=== PATIENT | male | born 1960 | race Caucasian/White ===

== ENCOUNTER 2019-08-06 16:32 | Emergency (ER) | payer OTHER, SELFPAY ==
[2019-08-06 16:45] VITALS: BP 161/93; PULSE 59; RESP 20; TEMP 36.4; O2SAT 100; BMI 27.8
--- NOTE | 2019-08-06 16:58 | ED.ABDPAIN ---
HPI - Abdominal Pain <JACQUIE Jane - Last Filed: 08/07/19 00:16> General Chief Complaint: Abdominal Pain Stated Complaint: thinks impacted bowls, lots of pain Time Seen by Provider: 08/06/19 16:46 Source: patient Mode of arrival: Ambulatory Limitations: no limitations History of Present Illness HPI narrative: This is a 59-year-old gentleman, nonsmoker, who presents with spouse with chief complain of feeling of constipation and lower abdominal discomfort for last 2 days. Patient states his bowel movement has been very normal and has 1-2 times of bowel movements daily after he incorporated magnesium powder supplements. He does intermittent fasting and it is healthy with vegetables and lean meat including nuts. Patient denies in recent diet change, fever/chills, nausea/vomiting, activity changes, or prolonged bed rest. Patient had used a glycerin suppositories and milk of magnesium today without relief. Patient also states he had not voided since this morning. Patient denies history of BPH. Patient decreased appetite and has not been eating since last night because he is worried about constipation and intermittent fasting during the daytime. Patient denies urinary symptoms such as frequency, urgency, dysuria. Related Data Previous Rx's Medication Instructions Recorded allopurinol 300 mg PO QDAY #90 tab 09/14/16 amlodipine 10 mg PO QDAY #90 tab 09/14/16 atenolol 100 mg PO QDAY #90 tab 09/14/16 Allergies Allergy/AdvReac Type Severity Reaction Status Date / Time No Known Drug Allergies Allergy Verified 08/06/19 16:45 Review of Systems <JACQUIE Jane - Last Filed: 08/07/19 00:16> Review of Systems Narrative: General: Denies fever, chills, fatigue, malaise, sweats. HEENT: Denies sinus pain, ear pain, sore throat, difficulty swallowing, dizziness. Respiratory: Denies dyspnea, cough, wheezing, hemoptysis, sputum. Cardiovascular: Denies chest pain, palpitations, orthopnea, edema. Gastrointestinal: See HPI : See HPI Musculoskeletal: Denies weakness, joint pain or bony pain. Skin: Denies rash, skin lesions, or other. Neurologic: Denies weakness, headache, numbness, change in speech, confusion, seizures, incoordination. Psychiatric: No concerning psychosocial issues. 12-point review of systems is negative except for those stated above. Patient History <JACQUIE Jane - Last Filed: 08/07/19 00:16> Social History Smoking Status: Never smoker alcohol intake frequency: 0-2 drinks per day Substance Use Type: does not use Exam <JACQUIE Jane - Last Filed: 08/07/19 00:16> Narrative Exam Narrative: GEN: Alert, oriented x 3, well appearing and nourished, and in no acute distress. Head: Normal cephalic, atraumatic. No scalp or temporal tenderness, palpable mass or rash. EYES: Pupils are equal, round, and reactive to light and accommodation. Extraocular muscles are intact bilaterally. There is no subconjunctival hemorrhage, exudate and sclera non-icteric. ENT: Bilateral auditory canals and tympanic membranes clear. Hearing grossly intact. Nose without bleeding, purulent discharge or deviation. Facial sinuses nontender to palpate. Mucous membrane moist, no mucosal lesion. Throat without erythema, tonsillar hypertrophy or exudate. Uvula in midline, airway patent. Neck: Trachea in midline. No JVD, non-tender without lymphadenopathy. No masses or thyroid megaly. Supple, non-tender and no meningeal signs. CARDIAC: Irregular rhythm without murmurs, gallops, or rubs. No chest wall tenderness. No peripheral edema, cyanosis or pallor. Capillary refill is less than 2 seconds. RESPIRATORY: Lungs are clear to auscultate bilaterally. No cough, wheezes, rales, or rhonchi. No stridor, respiratory distress, increase work of breathing, or accessary muscle used. ABD: Abdomen soft and non-distended. Mild discomfort to left quadrant. Has indwelling Hagen catheter obtained 1500 mL of urine. No guarding or rebound tenderness to palpate. Bowel sounds are normal in all 4 quadrants. There is no palpable masses or organomegaly. EXT: Full painless ROM of all extremities with no loss of sensation, strength, effusion or edema. SKIN: Warm, dry, normal color for patient. No erythema, lesions or rash over visible areas. BACK: Nontender without deformity or crepitance. No flank tenderness. NEUROLOGICAL: Alert and oriented to place, time and person. Sensation and motor function intact bilaterally. No facial droops, dysphasia. PSYCHIATRIC: Good judgement and reason, without hallucinations, abnormal affect or abnormal behaviors during the examination. Initial Vital Signs Initial Vital Signs: Vital Signs Temperature 97.6 F 08/06/19 16:45 Pulse Rate 59 L 08/06/19 16:45 Respiratory Rate 20 08/06/19 16:45 Blood Pressure 161/93 H 08/06/19 16:45 Pulse Oximetry 100 08/06/19 16:45 <Jose Alberto Lawrence DO - Last Filed: 08/07/19 00:53> Initial Vital Signs Initial Vital Signs: Vital Signs Temperature 97.6 F 08/06/19 16:45 Pulse Rate 59 L 08/06/19 16:45 Respiratory Rate 20 08/06/19 16:45 Blood Pressure 161/93 H 08/06/19 16:45 Pulse Oximetry 100 08/06/19 16:45 Scores <JACQUIE Jane - Last Filed: 08/07/19 00:16> CHADS-VASc Congestive heart failure: no Hypertension: yes Age 75 years or older: no Diabetes mellitus: no Stroke, TIA, or TE: no Vascular disease: no Age 65 to 74 years: no Sex category (female): Male CHADS-VASc Score: 1 Citation:: Also, [id number] score for Afib stroke risk-1 point (HTN) as a low risk. The patient takes 325 mg ASA daily for last 2 years. GCS Britni coma scale eye opening: Spontaneous Britni coma scale verbal response: Orientated [place] coma scale motor response: Obey commands Britni coma scale total score: 15 Course <JACQUIE Jane - Last Filed: 08/07/19 00:16> Orders Ordered: ED Orders 08/06/19 17:11 Complete Blood Count AUTO DIFF Stat Comprehensive Metabolic Panel Stat 08/06/19 17:44 Urine Microscopic Stat 08/06/19 17:45 XR acute abdomen series Stat 08/06/19 18:52 EKG-12 Lead Stat Discontinued Medications Magnesium Citrate (Magnesium Citrate) 300 ml PO NOW ONE Stop: 08/06/19 22:03 Last Admin: 08/06/19 22:15 Dose: 300 ml Documented by: JOSHUA Mineral Oil (Mineral Oil Enema) 1 each NV NOW ONE Stop: 08/06/19 20:38 Last Admin: 08/06/19 21:05 Dose: 1 each Documented by: JOSHUA Vital Signs Vital signs: Vital Signs - 8 hr 08/06/19 18:00 08/06/19 22:45 Temperature 98.7 F Pulse Rate 99 H 83 Respiratory Rate 16 16 Blood Pressure 131/83 Blood Pressure [Right Arm] 130/75 Pulse Oximetry 96 98 <Jose Alberto Lawrence DO - Last Filed: 08/07/19 00:53> Orders Ordered: ED Orders 08/06/19 17:11 Complete Blood Count AUTO DIFF Stat Comprehensive Metabolic Panel Stat 08/06/19 17:44 Urine Microscopic Stat 08/06/19 17:45 XR acute abdomen series Stat 08/06/19 18:52 EKG-12 Lead Stat Discontinued Medications Magnesium Citrate (Magnesium Citrate) 300 ml PO NOW ONE Stop: 08/06/19 22:03 Last Admin: 08/06/19 22:15 Dose: 300 ml Documented by: JOSHUA Mineral Oil (Mineral Oil Enema) 1 each NV NOW ONE Stop: 08/06/19 20:38 Last Admin: 08/06/19 21:05 Dose: 1 each Documented by: JOSHUA Vital Signs Vital signs: Vital Signs - 8 hr 08/06/19 18:00 08/06/19 22:45 Temperature 98.7 F Pulse Rate 99 H 83 Respiratory Rate 16 16 Blood Pressure 131/83 Blood Pressure [Right Arm] 130/75 Pulse Oximetry 96 98 MDM - Abdominal Pain <JACQUIE Jane - Last Filed: 08/07/19 00:16> Differential Diagnosis Differential diagnosis: Likely abdominal pain, constipation and other (Urinary retention) Medical Records Attestation: I reviewed the patient's medical records. Lab Data Attestation: I reviewed the patient's lab results. Result diagrams: 08/06/19 17:11 08/06/19 17:11 Labs: Lab Results 08/06/19 08/06/19 08/06/19 Range/Units 17:11 17:11 17:44 WBC 8.5 (4.5-11.0) X10^3/uL RBC 4.35 L (4.5-5.9) X10^6/uL Hgb 15.5 (13.5-17.5) g/dL Hct 44.3 (41-53) % MCV 101.9 H (80-100) fL MCH 35.7 H (26-34) PG MCHC 35.1 (30-36) % RDW 13.2 (11.6-14.8) % Plt Count 236 (150-400) X10^3/uL Neut % (Auto) 90.7 H (50-75) % Lymph % (Auto) 4.7 L (25-40) % Webb % (Auto) 4.3 (3-14) % Eos % (Auto) 0.1 L (2-4) % Baso % (Auto) 0.2 (0-2) % Neut # (Auto) 7700 H (2360-6179) /uL Lymph # (Auto) 400 L (9732-5013) /uL Webb # (Auto) 400 (0-900) /uL Eos # (Auto) 0 (0-450) /uL Baso # (Auto) 0 (0-100) /uL Sodium 133 L (137-145) mmol/L Potassium 4.3 (3.4-5.1) mmol/L Chloride 96 L (98-107) mmol/L Carbon Dioxide 26 (22-32) mmol/L BUN 12 (9-20) mg/dL Creatinine 0.60 L (0.66-1.25) mg/dL Estimated GFR > 60.0 (>60) mL/min BUN/Creatinine Ratio 20.0 (6-22) Glucose 172 H (80-110) mg/dL Calcium 9.4 (8.4-10.2) mg/dL Total Bilirubin 1.0 (0.2-1.3) mg/dL AST 47 (17-59) IU/L ALT 45 (21-72) IU/L Alkaline Phosphatase 113 (38-126) U/L Total Protein 7.8 (6.3-8.2) g/dL Albumin 4.6 (3.5-5.0) g/dL Globulin 3.2 (1.7-4.1) g/dL Albumin/Globulin Ratio 1.4 (1.0-2.8) Urine RBC None seen (0-5/HPF) Urine WBC 0-1/hpf (0-5/HPF) Ur Squamous Epith Cells 0-1 /hpf (0-5/HPF) Amorphous Sediment 1+ Urine Bacteria None seen (None) Ur Culture Indicated? Cult not indicated Point of care testing: Urine Dip Bedside Urine Glucose Negative Bedside Urine Bilirubin - Negative Bedside Urine Ketone + 15 Urine Specific [place] 1.010 Bedside Urine Occult Blood - Negative Bedside Urine pH 7.0 Bedside Urine Protein +/- 15 Bedside Urine Urobilinogen - Negative Bedside Urine Nitrite - Negative Bedside Urine Leukocytes - Negative Esterase Imaging Data Abdominal x-ray: Attestation: I personally reviewed and interpreted this imaging study as follows: Radiologist's impression: [address] [address] XRay Report Signed Patient: Randy Almonte RMR#: [id number] : 9Acct:[id number] Age/Sex: 59 / MDate of Service: 08/06/19 Loc: ED Accession Number: [id number] Procedure: XR acute abdomen series Ordering Provider: Gennaro Manjarrez PROCEDURE: XR ACUTE ABDOMEN SERIES INDICATIONS: abdominal pain and feels like constipation TECHNIQUE: One view chest and two views of the abdomen were acquired. COMPARISON: None. FINDINGS: Surgical changes and devices: None. Chest: Lungs are clear. Heart size is normal. No pleural effusions. No pneumoperitoneum. Abdomen: Mild gaseous distention of both small and large bowel loops. There is a paucity of gas and mildly increased amount of solid stool of the rectum. No suspicious calcifications. Visualized solid organ contours appear normal. Bones: No suspicious bony lesions. Bilateral hip arthroplasties. IMPRESSION: Gaseous distention of bowel loops may indicate a distal obstruction, potentially secondary to rectal stool. No free air. Dictated by: Jennifer Wong M.D. on 08/06/2019 at 18:10 Approved by: Jennifer Wong M.D. on 08/06/2019 at 18:13 ECG Data Attestation: I personally reviewed and interpreted this ECG as follows: Prior ECG tracings: not available for review Interpretation: Afib rate at 70. RBBB Normal axis. NO AT elevation or depression MDM Narrative Medical decision making narrative: This is a 5-year-old gentleman presents to ED from [facility] with constipation for 2 days with low abdominal discomfort and urinary retention since this morning after he voided. Patient denies constitutional symptoms. Patient denies any changes on his diet or activity levels. Patient usually has bowel movement 1-2 times daily without difficulty. Patient denies nausea or vomiting. Patient attempted to use [id number] milk of magnesium and glycerin suppository without much effect. AAS indicates mild gaseous distention of small and large bowel loops and a distal obstruction with increased amount of solid stool in the rectum. Lab tests shows very mildly decreased sodium and chloride of 133/96 with unremarkable CBC. Mineral or enema was administered and patient had good bowel movement in ED prior discharged to home and patient reports improved abdominal discomfort. Patient also was given half a bottle of oral magnesium citrate and discharged to home with the rest. Hagen catheter was inserted to decompress his bladder and obtained about 1800 mL of urine. The patient has acute urinary distention is likely due to constipation and pressure from his colon. Urine test was unremarkable for infection. Hagen bag has changed to a leg bag. Patient advised to follow up with his primary care physician for removal but patient declined due to difficulty getting on appointment with his primary care physician and states will be back tomorrow a.m. to ED or walk-in clinic for a Hagen removal after good bowel movements. Irregular heart rhythm was auscultated and EKG shows new onset of AFib without symptoms. Patient has been taking full-dose of aspirin for last 2-3 years. [id number] score for Afib stroke risk-1 point (HTN) as a low risk. Patient advised to continue with a full dose of aspirin daily and to follow up with his primary care physician as an outpatient. Patient was informed possibly needed echocardiogram in the near future. Patient verbalized understanding. Return precautions were discussed with the patient and agrees with the treatment plan. Patient and his spouse will be staying at the local [facility] before heading out to home to [facility] tomorrow. <Jose Alberto Lawrence, DO - Last Filed: 08/07/19 00:53> Lab Data Labs: Lab Results 08/06/19 08/06/19 08/06/19 Range/Units 17:11 17:11 17:44 WBC 8.5 (4.5-11.0) X10^3/uL RBC 4.35 L (4.5-5.9) X10^6/uL Hgb 15.5 (13.5-17.5) g/dL Hct 44.3 (41-53) % MCV 101.9 H (80-100) fL MCH 35.7 H (26-34) PG MCHC 35.1 (30-36) % RDW 13.2 (11.6-14.8) % Plt Count 236 (150-400) X10^3/uL Neut % (Auto) 90.7 H (50-75) % Lymph % (Auto) 4.7 L (25-40) % Webb % (Auto) 4.3 (3-14) % Eos % (Auto) 0.1 L (2-4) % Baso % (Auto) 0.2 (0-2) % Neut # (Auto) 7700 H (4934-7413) /uL Lymph # (Auto) 400 L (0101-7315) /uL Webb # (Auto) 400 (0-900) /uL Eos # (Auto) 0 (0-450) /uL Baso # (Auto) 0 (0-100) /uL Sodium 133 L (137-145) mmol/L Potassium 4.3 (3.4-5.1) mmol/L Chloride 96 L (98-107) mmol/L Carbon Dioxide 26 (22-32) mmol/L BUN 12 (9-20) mg/dL Creatinine 0.60 L (0.66-1.25) mg/dL Estimated GFR > 60.0 (>60) mL/min BUN/Creatinine Ratio 20.0 (6-22) Glucose 172 H (80-110) mg/dL Calcium 9.4 (8.4-10.2) mg/dL Total Bilirubin 1.0 (0.2-1.3) mg/dL AST 47 (17-59) IU/L ALT 45 (21-72) IU/L Alkaline Phosphatase 113 (38-126) U/L Total Protein 7.8 (6.3-8.2) g/dL Albumin 4.6 (3.5-5.0) g/dL Globulin 3.2 (1.7-4.1) g/dL Albumin/Globulin Ratio 1.4 (1.0-2.8) Urine RBC None seen (0-5/HPF) Urine WBC 0-1/hpf (0-5/HPF) Ur Squamous Epith Cells 0-1 /hpf (0-5/HPF) Amorphous Sediment 1+ Urine Bacteria None seen (None) Ur Culture Indicated? Cult not indicated Point of care testing: Urine Dip Bedside Urine Glucose Negative Bedside Urine Bilirubin - Negative Bedside Urine Ketone + 15 Urine Specific [place] 1.010 Bedside Urine Occult Blood - Negative Bedside Urine pH 7.0 Bedside Urine Protein +/- 15 Bedside Urine Urobilinogen - Negative Bedside Urine Nitrite - Negative Bedside Urine Leukocytes - Negative Esterase Discharge Plan Departure Patient Disposition: Home Clinical Impression: Acute urinary retention, New onset a-fib Constipation Qualifiers: Constipation type: unspecified constipation type Qualified Code(s): K59.00 - Constipation, unspecified Discharge Date/Time: 08/06/19 22:45 Instructions: DI for Constipation, DI for Urinary Retention in Men Activity Restrictions/Additional Instructions: You have been diagnosed with [constipation and acute urinary retention. Fully had in placed and drained near 1800 mL of urine today. Mineral oil enema has been administered and you had good bowel movement. New onset of AFib.]. What to do: *Take your medications as directed. Please take rest of the magnesium citrate when you arrive to hotel in anticipation of going to by tomorrow morning. Will consider removing Hagen catheter tomorrow morning after the good bowel movements. Fully back has been changed out to leg bag for convenience. You can get this done at ER or walk-in clinic since you declined to follow up with her primary care physician due to difficulty with the appointments. Please continue with the daily full dose of aspirin intake. *Follow up with your primary care provider in 2-3 days, call for an appointment. Let them know you were seen in the ED and that we asked you to be seen in follow up. You may need echocardiogram and further test for new onset of AFib. *Return to ED if you have any new, worsening, or concerning symptoms, such as [nausea/vomiting, fever, abdominal pain, unable to pass stool, chest pain, breathing difficulty, or any acute concerns]. Prescriptions: No Action atenolol 100 MG tablet 100 mg PO QDAY Qty: 90 RF: 3 amlodipine 10 MG tablet 10 mg PO QDAY Qty: 90 RF: 3 allopurinol 300 MG tablet 300 mg PO QDAY Qty: 90 RF: 3 Referrals: Андрей Brian MD [Non-Staff] -
--- NOTE | 2019-08-06 17:45 | DI.RAD.S_ITS ---
PROCEDURE: XR ACUTE ABDOMEN SERIES INDICATIONS: abdominal pain and feels like constipation TECHNIQUE: One view chest and two views of the abdomen were acquired. COMPARISON: None. FINDINGS: Surgical changes and devices: None. Chest: Lungs are clear. Heart size is normal. No pleural effusions. No pneumoperitoneum. Abdomen: Mild gaseous distention of both small and large bowel loops. There is a paucity of gas and mildly increased amount of solid stool of the rectum. No suspicious calcifications. Visualized solid organ contours appear normal. Bones: No suspicious bony lesions. Bilateral hip arthroplasties. IMPRESSION: Gaseous distention of bowel loops may indicate a distal obstruction, potentially secondary to rectal stool. No free air. Dictated by: Jennifer Wong M.D. on 08/06/2019 at 18:10 Approved by: Jennifer Wong M.D. on 08/06/2019 at 18:13
[2019-08-06 17:46] LABS: Bacteria Urine None Seen; RBC Urine None Seen (0-5/HPF)
[2019-08-06 17:56] LABS: Add Manual Diff / Slide Review NO; Basophils Absolute Auto 0 /uL (0-100); Basophils Percent Auto 0.2 % (0-2); Eosinophils Absolute Auto 0 /uL (0-450); Eosinophils Percent Auto 0.1 % (2-4); Hematocrit 44.3 % (41-53); Hemoglobin 15.5 g/dL (13.5-17.5); Lymphocytes Absolute Auto 400 /uL (1100-4500); Lymphocytes Percent Auto 4.7 % (25-40); Mean Corpuscular HGB Conc 35.1 % (30-36); Mean Corpuscular Hemoglobin 35.7 PG (26-34); Mean Corpuscular Volume 101.9 fL (80-100); Monocytes Absolute Auto 400 /uL (0-900); Monocytes Percent Auto 4.3 % (3-14); Neutrophils Absolute Auto 7700 /uL (1500-7000); Neutrophils Percent Auto 90.7 % (50-75); Platelet Count 236 X10^3/uL (150-400); Red Blood Cell Count 4.35 X10^6/uL (4.5-5.9); Red Cell Distribution Width 13.2 % (11.6-14.8); White Blood Cell Count 8.5 X10^3/uL (4.5-11.0)
[2019-08-06 17:56] LABS: Amorphous Sediment Urine 1+; Culture Indicated Urine Cult Not Indicated; Squamous Epithelial Cell Urine 0-1 /HPF (0-5/HPF); WBC Urine 0-1/HPF (0-5/HPF)
[2019-08-06 18:00] VITALS: BP 130/75; PULSE 99; RESP 16; O2SAT 96
[2019-08-06 18:02] LABS: Alanine Aminotransferase 45 IU/L (21-72); Albumin 4.6 g/dL (3.5-5.0); Albumin Globulin Ratio 1.4 (1.0-2.8); Alkaline Phosphatase 113 U/L (38-126); Aspartate Aminotransferase 47 IU/L (17-59); Blood Urea Nitrogen 12 mg/dL (9-20); Calcium 9.4 mg/dL (8.4-10.2); Carbon Dioxide 26 mmol/L (22-32); Chloride 96 mmol/L (98-107); Estimated Glomerular Filt Rate > 60.0 mL/min (>60); Globulin 3.2 g/dL (1.7-4.1); Glucose 172 mg/dL (80-110); HEMOLYSIS < 15 (0-50); Potassium 4.3 mmol/L (3.4-5.1); Sodium 133 mmol/L (137-145); Total Protein 7.8 g/dL (6.3-8.2)
[2019-08-06] MEDS: MINERAL OIL 1 EACH ENEMA PR (21:05)
[2019-08-06] MEDS: MAGNESIUM CITRATE 300 ML SOLUTION PO (22:15)
[2019-08-06 22:45] VITALS: BP 131/83; PULSE 83; RESP 16; TEMP 37.1; O2SAT 98
== END 2019-08-06 22:45 | disposition home or self-care (01) ==
PROVIDERS: Emergency Provider Nurse Practitioner Family
DX: R33.9 Retention of urine, unspecified (principal); I48.91 Unspecified atrial fibrillation; I10 Essential (primary) hypertension; K59.00 Constipation, unspecified; Z79.82 Long term (current) use of aspirin
CPT/HCPCS: 36415; 51701; 74022; 80053; 81003; 81015; 85025; 93005; 93010; 99284; 99285

== ENCOUNTER 2019-08-07 08:14 | Emergency (ER) | payer OTHER, SELFPAY ==
[2019-08-07 08:24] VITALS: BP 141/86; PULSE 68; RESP 16; O2SAT 97; BMI 27.8
--- NOTE | 2019-08-07 08:29 | ED.MALEGU ---
HPI - Male Genitourinary General Chief complaint: Urogenital-Male Stated complaint: remove of catheter Time Seen by Provider: 08/07/19 08:15 Source: patient Mode of arrival: Ambulatory Limitations: no limitations History of Present Illness HPI Narrative: 59-year-old male was seen in the emergency department yesterday for constipation and urinary retention. He had a Hagen catheter placed. Cording to the note from yesterday 1800 cc of urine returned however the patient states that it was almost 3 L of urine ?went was all sent in done ?patient was discharged home with a Hagen catheter in place. He returns to the emergency department today to have this catheter removed. Related Data Previous Rx's Medication Instructions Recorded allopurinol 300 mg PO QDAY #90 tab 09/14/16 amlodipine 10 mg PO QDAY #90 tab 09/14/16 atenolol 100 mg PO QDAY #90 tab 09/14/16 Allergies Allergy/AdvReac Type Severity Reaction Status Date / Time No Known Drug Allergies Allergy Verified 08/07/19 08:23 Review of Systems Constitutional Constitutional: Denies fever(s) Cardiovascular Cardiovascular: Denies chest pain and Denies dyspnea Respiratory Respiratory: Denies dyspnea Gastrointestinal Gastrointestinal: Denies abdominal pain Genitourinary Comments: Hagen catheter in place Integumentary/Breasts Skin/Breast: Denies rash Neurologic Neurologic: Denies behavioral changes Psychiatric Psychiatric: Denies behavioral changes Hematologic/Lymphatic Hematologic/Lymphatic: Denies easy bleeding and Denies easy bruising Patient History Medical History Acute urinary retention (Inactive) Elevated lipids (09/24/15) Essential hypertension (09/24/15) Social History Smoking Status: Never smoker alcohol intake frequency: 0-2 drinks per day Substance Use Type: does not use Exam Initial Vital Signs Initial Vital Signs: Vital Signs Pulse Rate 68 08/07/19 08:24 Respiratory Rate 16 08/07/19 08:24 Blood Pressure 141/86 H 08/07/19 08:24 Pulse Oximetry 97 08/07/19 08:24 Const General: cooperative, comfortable, well developed and well groomed Orientation: alert, awake and oriented x3 HENMT Head: normal to inspection and normocephalic Resp Effort & Inspection: normal respiratory effort Auscultation: clear to auscultation bilaterally Other: Hagen catheter in place Skin Rashes: no rashes Neuro General: alert and awake Cognition: normal cognition Speech: speech normal Extrem General: normal to inspection Psych Appearance: grossly normal and well kempt Course Vital Signs Vital signs: Vital Signs - 8 hr 08/07/19 08:24 Pulse Rate 68 Respiratory Rate 16 Blood Pressure 141/86 H Pulse Oximetry 97 MDM - Male Genitourinary MDM Narrative Medical decision making narrative: Patient did have urinary retention yesterday. He does have the Hagen catheter in place today. He return to the emergency department today to have this catheter removed. We did discuss his options to include leaving the catheter in place. I did inform him that leaving it in place and having him follow up with his primary doctor or a urologist would most likely give him the highest likelihood of being successful at not having urinary retention when the catheter is removed. I did inform him that we could remove the catheter today. Informed him that doing this there is the potential that he could start to urinate without problems or there is also the potentially he could start to retain urine again. Informed him that if this happened the catheter would have to be replaced. Patient expressed understanding of this. He states that he would still like to have the catheter removed. His is at bedside for these discussions. Catheter was removed. He was informed to follow up with his primary doctor. He expressed understanding and agreement. Discharge Plan Departure Patient Disposition: Home Clinical Impression: Encounter for Hagen catheter removal, H/O urinary retention Instructions: DI for Urinary Retention in Men Activity Restrictions/Additional Instructions: After our discussion today you did decide to have the Hagen catheter removed. There is a possibility that you will start to retain urine again. If this happens please seek medical attention once again to potentially have the catheter replaced. I do recommend that you follow up with your primary doctor regardless of this. Continue all of your medications as directed Prescriptions: No Action atenolol 100 MG tablet 100 mg PO QDAY Qty: 90 RF: 3 amlodipine 10 MG tablet 10 mg PO QDAY Qty: 90 RF: 3 allopurinol 300 MG tablet 300 mg PO QDAY Qty: 90 RF: 3
--- NOTE | 2019-08-07 08:30 | PC.NURSE ---
pt here to have indwelling urine catheter removed. pt had it placed last ewa for constipation. instructed to get it removed after bm. withdrew 10ml out of catheter tube balloon, then removed catheter from urethra.
== END 2019-08-07 08:54 | disposition home or self-care (01) ==
PROVIDERS: Emergency Provider Emergency Medicine
DX: Z46.6 Encounter for fitting and adjustment of urinary device (principal); Z87.898 Personal history of other specified conditions
CPT/HCPCS: 99282

== ENCOUNTER 2019-11-21 11:41 | Day surgery (SDC) | payer OTHER, SELFPAY ==
[2019-11-21] MEDS: SODIUM CHLORIDE 0.9% 1,000 ML 200 ML IV (12:00)
[2019-11-21 12:14] VITALS: BP 125/82; PULSE 67; RESP 20; TEMP 36.3; O2SAT 98
[2019-11-21 12:18] VITALS: BMI 27.7
--- NOTE | 2019-11-21 12:54 | PM.HP.1 ---
History of Present Illness History of Present Illness Date Patient Seen: 11/21/19 Time Patient Seen: 12:54 Chief complaint: [id number] Narrative: This is a 59-year-old man with history of severe constipation causing obstructive symptoms and urinary retention a few months ago. He has never had a colonoscopy. He denies any melena, hematochezia, unexplained weight loss, or unexplained abdominal pain. He has a recent new diagnosis of atrial fibrillation, and is being followed by Dr. Vasques. ROS: Positive for arthritis pain, constipation. Thirteen system review is otherwise negative other than as mentioned below and in HPI. PE GENERAL: Well groomed and cooperative. Appears stated age. Answers questions promptly and appropriately. Vital signs noted. HENT: Normocephalic, atraumatic. Hearing intact. Oral mucosa is pink and moist. EYES: Conjunctiva pink, sclera white, no periorbital swelling. CARDIOVASCULAR: Regular rate. No pedal edema. RESPIRATORY: Non-tachypneic, breathing comfortably on room air. GASTROINTESTINAL: Abdomen soft and non-distended GENITALURINARY: No flank tenderness. MUSCULOSKELETAL: Equal tone and mass bilaterally. SKIN: Warm, dry, soft, appropriate color for ethnicity. No other lesions, rashes, or wounds. NEURO: Alert and Oriented X 3. No gross sensory deficits, or cognitive issues. PSYCH: Appropriate affect and mood. Patient History Medical History Acute urinary retention (Inactive) Elevated lipids (09/24/15) Essential hypertension (09/24/15) Family & Social History Social History: household members spouse Tobacco & Substance use: Smoking Status Never smoker alcohol intake frequency 0-2 drinks per day Substance Use Type does not use Meds Home Medications and Allergies Home Medications Medication Instructions Recorded Confirmed Type allopurinol 300 mg PO QDAY #90 tab 09/14/16 11/21/19 Rx amlodipine 10 mg PO QDAY #90 tab 09/14/16 11/21/19 Rx atenolol 100 mg PO QDAY #90 tab 09/14/16 11/21/19 Rx aspirin 325 mg PO DAILY 11/21/19 11/21/19 History Allergies Allergy/AdvReac Type Severity Reaction Status Date / Time No Known Drug Allergies Allergy Verified 11/21/19 12:00 Exam Vital Signs (past 8 hours): - 11/21/19 12:14 Temperature 97.4 F L Pulse Rate 67 Respiratory Rate 20 Blood Pressure 125/82 Pulse Oximetry 98 Oxygen Delivery Method Room Air Assessment & Plan Assessment and plan (1) At average risk for colon cancer: Current visit: Yes Status: Acute (2) Chronic constipation: Current visit: Yes Status: Acute (3) Encounter for screening colonoscopy: Current visit: Yes Status: Acute Assessment & Plan narrative: Risks and benefits of screening colonoscopy and possible polypectomy were discussed with the patient including risk of bleeding, perforation, need for additional procedures, risks of anesthesia. The patient desires to proceed with the colonoscopy procedure. Time Spent With Patient Time with patient: 15-24 minutes Quality VTE Deep Vein Thrombosis/Pulmonary Embolism Present on Admission: No
--- NOTE | 2019-11-21 13:25 | PM.OP.ENDO ---
Operative Date/Time/Diagnoses Date of procedure: 11/21/19 Time of procedure: 13:25 Pre-op diagnosis: Average risk of colon cancer Post-op diagnosis: same Procedure & Clinicians Study performed: screening colonoscopy Same procedure as scheduled: Yes Indications: Average risk for colon cancer, never had a colonoscopy Surgeon: Cyndi Escobar Procedure Notes SCOAP/Timeout: Performed Procedure in detail: The patient was brought to the room and placed in left lateral decubitus position with all bony prominences padded. A time-out was performed and then the patient was given procedural sedation starting with 4 mg of Versed and 100 mcg of fentanyl. Vitals were monitored throughout the procedure and remained stable. Once adequately sedated the procedure was begun. A rectal exam was performed revealing no abnormalities. The colonoscope was then introduced to the rectum and advanced to the cecum in the usual fashion. The cecum was identified by the appendiceal orifice, the mucosal tri-fold, and the ileocecal valve. The scope was then retracted while rotating side to side and examining each mucosal fold. At the conclusion of the procedure retroflexion was performed and small grade 1-2 internal hemorrhoids without stigmata of bleeding were seen. The scope was then withdrawn from the rectum the procedure was concluded. The patient tolerated the procedure well and was transferred to the PACU in stable condition. Scope withdrawal time: 8 Sedation minutes: 21 Specimen(s): none sent Complications: none Impression: Normal colon Post-procedure Recommendations: Colonscopy in 10 years Plan for aftercare: Consider using Metamucil as a fiber supplement to prevent constipation, and if that does not resolve your constipation, consider using a daily stool softener such as docusate, as well as a laxative such as senna or MiraLax if needed. Use a daily bowel regimen to prevent constipation rather than treating it when it occurs Follow up: as needed Disposition: PACU
[2019-11-21] MEDS: fentaNYL 250 MCG/5 ML INJ IV (13:29)
[2019-11-21 13:30] VITALS: BP 120/72; PULSE 66; RESP 16; TEMP 36.1; O2SAT 97
[2019-11-21] MEDS: MIDAZOLAM 5 MG/5 ML VIAL IV (13:30)
[2019-11-21 13:36] VITALS: BP 107/72; PULSE 66; RESP 13; O2SAT 97
[2019-11-21 13:43] VITALS: BP 120/79; PULSE 79; RESP 16; TEMP 36.7; O2SAT 97
--- NOTE | 2019-11-21 13:59 | SUR.PHASEII ---
back from walking the dog, d/c instructions discussed. Both voiced an understanding. Belly remains soft, tolerated po fluids.
[2019-11-21 14:18] VITALS: BP 120/82; PULSE 75; RESP 16; TEMP 36.8; O2SAT 97
== END 2019-11-21 14:24 | disposition home or self-care (01) ==
PROVIDERS: PCP Family Medicine; Referring Provider Surgery; Visit Provider Surgery
PROC: 0DJD8ZZ Inspection of Lower Intestinal Tract, Via Natural or Artificial Opening Endoscopic (ICD-10-PCS; CPT 45378; principal; 2019-11-21 13:00)
DX: Z12.11 Encounter for screening for malignant neoplasm of colon (principal); K64.0 First degree hemorrhoids
CPT/HCPCS: 45378; 99152; J2250; J3010

== ENCOUNTER → 2021-05-05 10:10 | Outpatient (CLI) | payer OTHER, SELFPAY ==
[2021-05-05 21:14] LABS: COVID19 - ORCAS (NP or Nasal) Negative (Negative)
== END ==
PROVIDERS: PCP Family Medicine; Visit Provider Family Medicine
DX: Z20.822 Contact with and (suspected) exposure to COVID-19 (principal)
CPT/HCPCS: U0003

== ENCOUNTER → 2022-07-08 12:17 | Outpatient (CLI) | payer OTHER, SELFPAY ==
[2022-07-08 20:28] LABS: Alanine Aminotransferase 37 IU/L (<50); Albumin 4.5 g/dL (3.5-5.0); Albumin Globulin Ratio 1.4 (1.0-2.8); Alkaline Phosphatase 82 U/L (38-126); Aspartate Aminotransferase 43 IU/L (17-59); BUN Creatinine Ratio 15.9 (6-22); Bilirubin Total 0.6 mg/dL (0.2-1.3); Blood Urea Nitrogen 10 mg/dL (9-20); Calcium 9.5 mg/dL (8.4-10.2); Carbon Dioxide 28 mmol/L (22-32); Chloride 95 mmol/L (98-107); Cholesterol 207 mg/dL (140-199); Estimated Glomerular Filt Rate > 60 mL/min (>60); Globulin 3.2 g/dL (1.7-4.1); Glucose 102 mg/dL (80-110); HDL Cholesterol 102 mg/dL (40-60); HEMOLYSIS < 15 (0-50); LDL Cholesterol Calculated 95 mg/dL (<100); Potassium 4.5 mmol/L (3.4-5.1); Sodium 134 mmol/L (137-145); Total Protein 7.7 g/dL (6.3-8.2); Triglycerides 52 mg/dL (35-150)
[2022-07-08 20:33] LABS: Hemoglobin A1C% w Est Avg Glu 5.7 % (4.0-6.0)
[2022-07-08 20:58] LABS: Prostate Specific Antigen Scrn 0.872 ng/mL (0.1-4.0)
== END ==
PROVIDERS: PCP Family Medicine; Visit Provider Family Medicine
DX: E78.2 Mixed hyperlipidemia (principal); I10 Essential (primary) hypertension; M1A.00X0 Idiopathic chronic gout, unspecified site, without tophus (tophi); R73.9 Hyperglycemia, unspecified; R74.8 Abnormal levels of other serum enzymes; Z12.5 Encounter for screening for malignant neoplasm of prostate; Z86.79 Personal history of other diseases of the circulatory system
CPT/HCPCS: 80053; 80061; 83036; 84550; G0103

== ENCOUNTER → 2023-07-21 11:18 | Outpatient (CLI) | payer OTHER, SELFPAY ==
[2023-07-21 19:18] LABS: Add Manual Diff / Slide Review NO; Basophils Absolute Auto 0 /uL (0-100); Basophils Percent Auto 0.7 % (0-2); Eosinophils Absolute Auto 100 /uL (0-450); Eosinophils Percent Auto 1.5 % (2-4); Hematocrit 44.4 % (41-53); Hemoglobin 15.2 g/dL (13.5-17.5); Lymphocytes Absolute Auto 700 /uL (1100-4500); Lymphocytes Percent Auto 10.6 % (25-40); Mean Corpuscular HGB Conc 34.3 % (30-36); Mean Corpuscular Hemoglobin 33.9 PG (26-34); Mean Corpuscular Volume 98.7 fL (80-100); Monocytes Absolute Auto 600 /uL (0-900); Monocytes Percent Auto 9.8 % (3-14); Neutrophils Absolute Auto 5100 /uL (1500-7000); Neutrophils Percent Auto 77.4 % (50-75); Platelet Count 272 X10^3/uL (150-400); Red Blood Cell Count 4.49 X10^6/uL (4.5-5.9); Red Cell Distribution Width 13.3 % (11.6-14.8); White Blood Cell Count 6.6 X10^3/uL (4.5-11.0)
[2023-07-21 19:28] LABS: Blood Urea Nitrogen 9 mg/dL (9-20); Calcium 9.8 mg/dL (8.4-10.2); Carbon Dioxide 27 mmol/L (22-32); Chloride 95 mmol/L (98-107); Cholesterol 209 mg/dL (140-199); Estimated Glomerular Filt Rate > 60 mL/min (>60); Glucose 113 mg/dL (80-110); HDL Cholesterol 99 mg/dL (40-60); HEMOLYSIS < 15 (0-50); LDL Cholesterol Calculated 98 mg/dL (<100); Potassium 4.3 mmol/L (3.4-5.1); Sodium 132 mmol/L (137-145); Triglycerides 62 mg/dL (35-150); Uric Acid 2.8 mg/dL (3.5-8.5)
== END ==
PROVIDERS: PCP Family Medicine; Visit Provider Family Medicine
DX: I10 Essential (primary) hypertension (principal); E78.2 Mixed hyperlipidemia; Z86.79 Personal history of other diseases of the circulatory system; M10.9 Gout, unspecified
CPT/HCPCS: 80048; 80061; 84550; 85025

== ENCOUNTER → 2024-08-02 11:27 | Outpatient (CLI) | payer MEDICARE, OTHER, SELFPAY ==
[2024-08-02 19:34] LABS: Uric Acid 3.4 mg/dL (3.5-8.5)
[2024-08-03 20:14] LABS: BUN Creatinine Ratio 14.1 (6-22); Blood Urea Nitrogen 10 mg/dL (9-20); Calcium 9.2 mg/dL (8.4-10.2); Carbon Dioxide 29 mmol/L (22-32); Chloride 98 mmol/L (98-107); Cholesterol 180 mg/dL (140-199); Estimated Glomerular Filt Rate > 60 mL/min (>60); Glucose 112 mg/dL (80-110); HDL Cholesterol 64 mg/dL (40-60); HEMOLYSIS < 15 (0-50); LDL Cholesterol Calculated 96 mg/dL (<100); Potassium 4.4 mmol/L (3.4-5.1); Sodium 133 mmol/L (137-145); Triglycerides 99 mg/dL (35-150)
[2024-08-03 20:45] LABS: Prostate Specific Antigen Scrn 1.03 ng/mL (0.1-4.0)
== END ==
PROVIDERS: PCP Family Medicine; Visit Provider Family Medicine
DX: E78.2 Mixed hyperlipidemia (principal); Z12.5 Encounter for screening for malignant neoplasm of prostate; Z98.890 Other specified postprocedural states; I48.91 Unspecified atrial fibrillation; Z87.898 Personal history of other specified conditions; I10 Essential (primary) hypertension; I48.20 Chronic atrial fibrillation, unspecified; M1A.00X0 Idiopathic chronic gout, unspecified site, without tophus (tophi)
CPT/HCPCS: 80048; 80061; 84550; G0103

== ENCOUNTER → 2024-11-15 14:30 | Outpatient (CLI) | payer MEDICARE, OTHER, SELFPAY ==
[2024-11-15 18:47] LABS: Add Manual Diff / Slide Review NO; Basophils Absolute Auto 100 /uL (0-100); Basophils Percent Auto 0.7 % (0-2); Eosinophils Absolute Auto 100 /uL (0-450); Eosinophils Percent Auto 1.2 % (2-4); Hematocrit 45.8 % (41-53); Hemoglobin 15.7 g/dL (13.5-17.5); Lymphocytes Absolute Auto 700 /uL (1100-4500); Lymphocytes Percent Auto 10.3 % (25-40); Mean Corpuscular HGB Conc 34.2 % (30-36); Mean Corpuscular Hemoglobin 34.3 PG (26-34); Mean Corpuscular Volume 100.5 fL (80-100); Monocytes Absolute Auto 600 /uL (0-900); Monocytes Percent Auto 8.4 % (3-14); Neutrophils Absolute Auto 5700 /uL (1500-7000); Neutrophils Percent Auto 79.4 % (50-75); Platelet Count 238 X10^3/uL (150-400); Red Blood Cell Count 4.56 X10^6/uL (4.5-5.9); Red Cell Distribution Width 13.4 % (11.6-14.8); White Blood Cell Count 7.2 X10^3/uL (4.5-11.0)
== END ==
PROVIDERS: PCP Family Medicine; Visit Provider Physician Assistant Medical
DX: L03.90 Cellulitis, unspecified (principal); R21 Rash and other nonspecific skin eruption
CPT/HCPCS: 85025; 87070; 87075; 87205

== ENCOUNTER → 2025-02-28 10:21 | Outpatient (CLI) | payer MEDICARE, OTHER, SELFPAY ==
[2025-02-28 20:36] LABS: BUN Creatinine Ratio 15.4 (6-22); Blood Urea Nitrogen 8 mg/dL (9-20); Estimated Glomerular Filt Rate > 60 mL/min (>60)
[2025-02-28 20:38] LABS: Hemoglobin A1C% w Est Avg Glu 5.4 % (4.0-6.0)
[2025-02-28 21:01] LABS: Creatinine Urine Random 27.53 mg/dL
[2025-02-28 21:07] LABS: Microalbumin Urine Random 4.5 mg/dL (0-1.6)
== END ==
PROVIDERS: PCP Family Medicine; Visit Provider Family Medicine
DX: R73.9 Hyperglycemia, unspecified (principal); I48.91 Unspecified atrial fibrillation; E78.2 Mixed hyperlipidemia; R73.03 Prediabetes; I10 Essential (primary) hypertension
CPT/HCPCS: 82043; 82565; 82570; 83036; 84520

== ENCOUNTER → 2025-04-18 11:04 | Outpatient (CLI) | payer MEDICARE, OTHER, SELFPAY | PROVIDERS: PCP Family Medicine; Visit Provider Physician Assistant Medical | DX: S41.109A Unspecified open wound of unspecified upper arm, initial encounter (principal); T14.8XXA Other injury of unspecified body region, initial encounter; L08.9 Local infection of the skin and subcutaneous tissue, unspecified; Z28.21 Immunization not carried out because of patient refusal; S41.111A Laceration without foreign body of right upper arm, initial encounter; E11.9 Type 2 diabetes mellitus without complications | CPT/HCPCS: 87070; 87075; 87077; 87147; 87186; 87205 ==

== ENCOUNTER → 2025-04-24 15:08 | Outpatient (CLI) | payer MEDICARE, OTHER, SELFPAY | PROVIDERS: PCP Family Medicine; Visit Provider Physician Assistant Medical | DX: S41.111D Laceration without foreign body of right upper arm, subsequent encounter (principal); X58.XXXD Exposure to other specified factors, subsequent encounter | CPT/HCPCS: 87070; 87075; 87077; 87147; 87186; 87205 ==

== ENCOUNTER → 2025-07-26 11:07 | Outpatient (CLI) | payer MEDICARE, OTHER, SELFPAY ==
[2025-07-26 18:51] LABS: Add Manual Diff / Slide Review NO; Hematocrit 47.3 % (41-53); Hemoglobin 16.2 g/dL (13.5-17.5); Lymphocytes Absolute Auto 600 /uL (1100-4500); Mean Corpuscular HGB Conc 34.3 % (30-36); Mean Corpuscular Hemoglobin 34.6 PG (26-34); Mean Corpuscular Volume 100.6 fL (80-100); Platelet Count 260 X10^3/uL (150-400)
[2025-07-26 19:09] LABS: Blood Urea Nitrogen 8 mg/dL (9-20); Calcium 9.2 mg/dL (8.4-10.2); Carbon Dioxide 26 mmol/L (22-32); Chloride 98 mmol/L (98-107); Cholesterol 165 mg/dL (140-199); Estimated Glomerular Filt Rate > 60 mL/min (>60); Glucose 135 mg/dL (70-99); HDL Cholesterol 99 mg/dL (40-60); HEMOLYSIS < 15 (0-50); Potassium 4.5 mmol/L (3.4-5.1); Sodium 133 mmol/L (137-145); Triglycerides 53 mg/dL (35-150); Uric Acid 2.9 mg/dL (3.5-8.5)
== END ==
PROVIDERS: PCP Family Medicine; Visit Provider Family Medicine
DX: E11.9 Type 2 diabetes mellitus without complications (principal); Z12.5 Encounter for screening for malignant neoplasm of prostate; I48.20 Chronic atrial fibrillation, unspecified; H04.129 Dry eye syndrome of unspecified lacrimal gland; E78.2 Mixed hyperlipidemia; I10 Essential (primary) hypertension; M1A.00X0 Idiopathic chronic gout, unspecified site, without tophus (tophi)
CPT/HCPCS: 80048; 80061; 84550; 85025; G0103